=== PATIENT | female | born 1955 | race Caucasian/White ===

== ENCOUNTER 2020-08-17 15:13 | Emergency (ER) | payer MEDICARE, BC ==
[2020-08-17] MEDS ORDERED: HYDROcodone/Acetaminophen 5/325 mg Tablet ONE (15:41)
[2020-08-17] MEDS ORDERED: KETAMINE 100 MG/ML (5ML VIAL) ONE (16:43)
[2020-08-17] MEDS ORDERED: Midazolam HCl 2 mg/2 ml Vial ONE (17:46)
[2020-08-17] MEDS ORDERED: Ondansetron PF 4 MG/2 ML Vial ONE (17:46)
[2020-08-17] MEDS ORDERED: Sodium Chloride 0.9% 100 ML ONE (18:27)
[2020-08-17] MEDS ORDERED: Promethazine HCl 25 MG/ML VIAL ONE (18:27)
== END 2020-08-17 22:20 | disposition short-term general hospital (02) ==
LOC: NAV ERS 15:13
DX: S82.852A Displaced trimalleolar fracture of left lower leg, initial encounter for closed fracture (principal); S93.05XA Dislocation of left ankle joint, initial encounter; H40.9 Unspecified glaucoma; Z79.899 Other long term (current) drug therapy; W00.0XXA Fall on same level due to ice and snow, initial encounter
CPT/HCPCS: 27818; 96365; 96375; 99152; 99153; J2250; J2405; J2550

== ENCOUNTER 2020-08-24 18:46 | Inpatient (IN) | payer MEDICARE, BC ==
[2020-08-25 05:20] LABS: #Basophils 0.1 thou/uL (0.0-0.2); #Eosinphils 0.4 thou/uL (0.0-0.7); #Lymphocytes 2.2 thou/uL (1.20-3.40); #Monocytes 0.5 thou/uL (0.11-0.59); #Neutrophils 3.4 thou/uL (1.40-6.50); %Basophils 0.8 % (0.0-1.0); %Eosinophils 6.2 % (0.0-10.0); %Lymphocytes 33.2 % (21.0-51.0); %Monocytes 7.5 % (0.0-10.0); %Neutrophils 52.4 % (42.0-75.0); Hemoglobin 11.9 g/dL (12.0-16.0); Mean Corpuscular HGB CONC 32.3 g/dL (32.0-36.0); Mean Corpuscular Hemoglobin 28.8 pg (27.0-31.0); Mean Corpuscular Volume 89.3 fL (78.0-98.0); Mean Platelet Volume 5.5 fL (7.4-10.4); Platelet Count 252 thou/uL (130-400); RBC Distribution Width 12.6 % (11.5-14.5); Red Blood Cell (RBC) Count 4.13 mill/uL (4.20-5.40); White Blood Cell (WBC) Count 6.5 thou/uL (4.8-10.8)
[2020-08-25 05:31] LABS: Anion Gap 14 mmol/L (10-20); BUN (Urea Nitrogen) 15 mg/dL (9.8-20.1); Calc. Creatinine Clearance 135 mL/min (70-130); Calcium 9.2 mg/dL (7.8-10.44); Carbon Dioxide 26 mmol/L (23-31); Chloride 104 mmol/L (98-107); Glucose 92 mg/dL (80-115); Potassium 3.9 mmol/L (3.5-5.1); Sodium 140 mmol/L (136-145)
[2020-08-25] MEDS: Acetaminophen 500 MG TAB PO SCH ×5 (06:25→23:47)
[2020-08-25] MEDS: Brimonidine Tartrate 0.2% Ophth Soln 5 ml Bottle EA EYE SCH ×2 (08:03→20:05)
[2020-08-25] MEDS: Multivitamin W/ Minerals 1 TAB PO SCH (08:04)
[2020-08-25] MEDS: DorzolamidE/Timolol 2%/0.5% Ophth Soln 10 ml Bottle EA EYE SCH ×2 (08:04→20:04)
[2020-08-25] MEDS: Loratadine 10 MG TAB PO SCH (08:04)
[2020-08-25] MEDS: traMADol HCl 50 MG TAB PO PRN (08:04)
[2020-08-25] MEDS: Stress 600 With Zinc 1 TAB PO SCH (08:04)
[2020-08-25] MEDS ORDERED: FLU VACC QS2020-21(65YR UP)/PF 240 MCG/0.7 ML SYRINGE IM ONE (09:00)
[2020-08-25] MEDS: Latanoprost 0.005% Ophth Soln 2.5 ml Bottle EA EYE SCH (20:04)
[2020-08-26] MEDS: Acetaminophen 500 MG TAB PO SCH ×4 (05:18→23:55)
[2020-08-26] MEDS: DorzolamidE/Timolol 2%/0.5% Ophth Soln 10 ml Bottle EA EYE SCH ×2 (09:18→20:48)
[2020-08-26] MEDS: Multivitamin W/ Minerals 1 TAB PO SCH (09:19)
[2020-08-26] MEDS: Loratadine 10 MG TAB PO SCH (09:19)
[2020-08-26] MEDS: Brimonidine Tartrate 0.2% Ophth Soln 5 ml Bottle EA EYE SCH ×2 (09:19→20:48)
[2020-08-26] MEDS: Stress 600 With Zinc 1 TAB PO SCH (09:19)
[2020-08-26] MEDS: traMADol HCl 50 MG TAB PO PRN (20:46)
[2020-08-26] MEDS: Latanoprost 0.005% Ophth Soln 2.5 ml Bottle EA EYE SCH (20:49)
[2020-08-27] MEDS: Acetaminophen 500 MG TAB PO SCH ×4 (05:11→23:38)
[2020-08-27] MEDS: Loratadine 10 MG TAB PO SCH (09:00)
[2020-08-27] MEDS: Stress 600 With Zinc 1 TAB PO SCH (09:00)
[2020-08-27] MEDS: DorzolamidE/Timolol 2%/0.5% Ophth Soln 10 ml Bottle EA EYE SCH ×2 (09:02→21:00)
[2020-08-27] MEDS: Multivitamin W/ Minerals 1 TAB PO SCH (09:02)
[2020-08-27] MEDS: Brimonidine Tartrate 0.2% Ophth Soln 5 ml Bottle EA EYE SCH ×2 (09:02→21:00)
[2020-08-27] MEDS: Latanoprost 0.005% Ophth Soln 2.5 ml Bottle EA EYE SCH (21:00)
[2020-08-28] MEDS: Acetaminophen 500 MG TAB PO SCH ×3 (05:57→18:07)
[2020-08-28] MEDS: DorzolamidE/Timolol 2%/0.5% Ophth Soln 10 ml Bottle EA EYE SCH ×2 (09:42→20:50)
[2020-08-28] MEDS: Multivitamin W/ Minerals 1 TAB PO SCH (09:42)
[2020-08-28] MEDS: Stress 600 With Zinc 1 TAB PO SCH (09:42)
[2020-08-28] MEDS: Loratadine 10 MG TAB PO SCH (09:42)
[2020-08-28] MEDS: Brimonidine Tartrate 0.2% Ophth Soln 5 ml Bottle EA EYE SCH ×2 (09:42→20:51)
[2020-08-28] MEDS: Latanoprost 0.005% Ophth Soln 2.5 ml Bottle EA EYE SCH (20:51)
[2020-08-29] MEDS: Acetaminophen 500 MG TAB PO SCH ×4 (00:20→18:25)
[2020-08-29] MEDS: Loratadine 10 MG TAB PO SCH (09:00)
[2020-08-29] MEDS: Multivitamin W/ Minerals 1 TAB PO SCH (09:00)
[2020-08-29] MEDS: Stress 600 With Zinc 1 TAB PO SCH (09:00)
[2020-08-29] MEDS: DorzolamidE/Timolol 2%/0.5% Ophth Soln 10 ml Bottle EA EYE SCH ×2 (09:01→21:13)
[2020-08-29] MEDS: Brimonidine Tartrate 0.2% Ophth Soln 5 ml Bottle EA EYE SCH ×2 (09:01→21:12)
[2020-08-29] MEDS: Latanoprost 0.005% Ophth Soln 2.5 ml Bottle EA EYE SCH (21:11)
[2020-08-30] MEDS: Acetaminophen 500 MG TAB PO SCH ×5 (01:11→23:48)
[2020-08-30] MEDS: Multivitamin W/ Minerals 1 TAB PO SCH (08:52)
[2020-08-30] MEDS: DorzolamidE/Timolol 2%/0.5% Ophth Soln 10 ml Bottle EA EYE SCH ×2 (08:52→20:36)
[2020-08-30] MEDS: Stress 600 With Zinc 1 TAB PO SCH (08:52)
[2020-08-30] MEDS: Loratadine 10 MG TAB PO SCH (08:52)
[2020-08-30] MEDS: Brimonidine Tartrate 0.2% Ophth Soln 5 ml Bottle EA EYE SCH ×2 (08:52→20:37)
[2020-08-30] MEDS: Latanoprost 0.005% Ophth Soln 2.5 ml Bottle EA EYE SCH (20:37)
[2020-08-31] MEDS: Acetaminophen 500 MG TAB PO SCH ×3 (06:04→17:33)
[2020-08-31] MEDS: Brimonidine Tartrate 0.2% Ophth Soln 5 ml Bottle EA EYE SCH ×2 (09:52→20:34)
[2020-08-31] MEDS: DorzolamidE/Timolol 2%/0.5% Ophth Soln 10 ml Bottle EA EYE SCH ×2 (09:52→20:34)
[2020-08-31] MEDS: Multivitamin W/ Minerals 1 TAB PO SCH (09:53)
[2020-08-31] MEDS: Loratadine 10 MG TAB PO SCH (09:53)
[2020-08-31] MEDS: Stress 600 With Zinc 1 TAB PO SCH (09:53)
[2020-08-31] MEDS: Latanoprost 0.005% Ophth Soln 2.5 ml Bottle EA EYE SCH (20:34)
[2020-09-01] MEDS: Acetaminophen 500 MG TAB PO SCH ×5 (00:39→23:56)
[2020-09-01] MEDS: Stress 600 With Zinc 1 TAB PO SCH (09:21)
[2020-09-01] MEDS: Multivitamin W/ Minerals 1 TAB PO SCH (09:21)
[2020-09-01] MEDS: Loratadine 10 MG TAB PO SCH (09:21)
[2020-09-01] MEDS: DorzolamidE/Timolol 2%/0.5% Ophth Soln 10 ml Bottle EA EYE SCH ×2 (09:24→20:37)
[2020-09-01] MEDS: Brimonidine Tartrate 0.2% Ophth Soln 5 ml Bottle EA EYE SCH ×2 (09:24→20:36)
[2020-09-01] MEDS: Latanoprost 0.005% Ophth Soln 2.5 ml Bottle EA EYE SCH (20:36)
[2020-09-02] MEDS: Acetaminophen 500 MG TAB PO SCH ×3 (05:07→18:26)
[2020-09-02] MEDS: Brimonidine Tartrate 0.2% Ophth Soln 5 ml Bottle EA EYE SCH ×2 (09:07→20:48)
[2020-09-02] MEDS: Multivitamin W/ Minerals 1 TAB PO SCH (09:08)
[2020-09-02] MEDS: Loratadine 10 MG TAB PO SCH (09:08)
[2020-09-02] MEDS: DorzolamidE/Timolol 2%/0.5% Ophth Soln 10 ml Bottle EA EYE SCH ×2 (09:08→20:48)
[2020-09-02] MEDS: Stress 600 With Zinc 1 TAB PO SCH (09:08)
[2020-09-02] MEDS: Latanoprost 0.005% Ophth Soln 2.5 ml Bottle EA EYE SCH (20:47)
[2020-09-03] MEDS: Acetaminophen 500 MG TAB PO SCH ×5 (00:53→23:27)
[2020-09-03] MEDS: Brimonidine Tartrate 0.2% Ophth Soln 5 ml Bottle EA EYE SCH ×2 (08:40→20:47)
[2020-09-03] MEDS: Stress 600 With Zinc 1 TAB PO SCH (08:41)
[2020-09-03] MEDS: Loratadine 10 MG TAB PO SCH (08:41)
[2020-09-03] MEDS: Multivitamin W/ Minerals 1 TAB PO SCH (08:41)
[2020-09-03] MEDS: DorzolamidE/Timolol 2%/0.5% Ophth Soln 10 ml Bottle EA EYE SCH ×2 (08:41→20:47)
[2020-09-03] MEDS: Latanoprost 0.005% Ophth Soln 2.5 ml Bottle EA EYE SCH (20:46)
[2020-09-04] MEDS: Acetaminophen 500 MG TAB PO SCH ×4 (05:26→23:51)
[2020-09-04] MEDS: Brimonidine Tartrate 0.2% Ophth Soln 5 ml Bottle EA EYE SCH ×2 (08:30→20:20)
[2020-09-04] MEDS: DorzolamidE/Timolol 2%/0.5% Ophth Soln 10 ml Bottle EA EYE SCH ×2 (08:30→20:19)
[2020-09-04] MEDS: Multivitamin W/ Minerals 1 TAB PO SCH (08:30)
[2020-09-04] MEDS: Stress 600 With Zinc 1 TAB PO SCH (08:30)
[2020-09-04] MEDS: Loratadine 10 MG TAB PO SCH (08:30)
[2020-09-04] MEDS: Latanoprost 0.005% Ophth Soln 2.5 ml Bottle EA EYE SCH (20:19)
[2020-09-05] MEDS: Acetaminophen 500 MG TAB PO SCH ×4 (05:04→23:31)
[2020-09-05] MEDS: Loratadine 10 MG TAB PO SCH (09:56)
[2020-09-05] MEDS: Brimonidine Tartrate 0.2% Ophth Soln 5 ml Bottle EA EYE SCH ×2 (09:56→20:12)
[2020-09-05] MEDS: Multivitamin W/ Minerals 1 TAB PO SCH (09:56)
[2020-09-05] MEDS: DorzolamidE/Timolol 2%/0.5% Ophth Soln 10 ml Bottle EA EYE SCH ×2 (09:56→20:12)
[2020-09-05] MEDS: Stress 600 With Zinc 1 TAB PO SCH (09:57)
[2020-09-05] MEDS: Latanoprost 0.005% Ophth Soln 2.5 ml Bottle EA EYE SCH (20:13)
[2020-09-05 20:44] VITALS: BMI 46.0
[2020-09-06] MEDS: Acetaminophen 500 MG TAB PO SCH ×4 (05:57→23:52)
[2020-09-06] MEDS: Loratadine 10 MG TAB PO SCH (08:39)
[2020-09-06] MEDS: Stress 600 With Zinc 1 TAB PO SCH (08:39)
[2020-09-06] MEDS: Multivitamin W/ Minerals 1 TAB PO SCH (08:39)
[2020-09-06] MEDS: Brimonidine Tartrate 0.2% Ophth Soln 5 ml Bottle EA EYE SCH ×2 (08:40→20:20)
[2020-09-06] MEDS: DorzolamidE/Timolol 2%/0.5% Ophth Soln 10 ml Bottle EA EYE SCH ×2 (08:41→20:20)
[2020-09-06] MEDS: Latanoprost 0.005% Ophth Soln 2.5 ml Bottle EA EYE SCH (20:20)
[2020-09-07] MEDS: Acetaminophen 500 MG TAB PO SCH ×4 (04:59→23:49)
[2020-09-07] MEDS: Brimonidine Tartrate 0.2% Ophth Soln 5 ml Bottle EA EYE SCH ×2 (08:04→20:45)
[2020-09-07] MEDS: Loratadine 10 MG TAB PO SCH (08:04)
[2020-09-07] MEDS: Multivitamin W/ Minerals 1 TAB PO SCH (08:04)
[2020-09-07] MEDS: DorzolamidE/Timolol 2%/0.5% Ophth Soln 10 ml Bottle EA EYE SCH ×2 (08:04→20:44)
[2020-09-07] MEDS: Stress 600 With Zinc 1 TAB PO SCH (08:05)
[2020-09-07] MEDS: Latanoprost 0.005% Ophth Soln 2.5 ml Bottle EA EYE SCH (20:45)
[2020-09-08] MEDS: Acetaminophen 500 MG TAB PO SCH ×2 (06:12→12:20)
[2020-09-08 07:56] VITALS: BP 111/60; TEMP 98.2
[2020-09-08] MEDS: Brimonidine Tartrate 0.2% Ophth Soln 5 ml Bottle EA EYE SCH (08:37)
[2020-09-08] MEDS: DorzolamidE/Timolol 2%/0.5% Ophth Soln 10 ml Bottle EA EYE SCH (08:37)
[2020-09-08] MEDS: Loratadine 10 MG TAB PO SCH (08:38)
[2020-09-08] MEDS: Multivitamin W/ Minerals 1 TAB PO SCH (08:38)
[2020-09-08] MEDS: Stress 600 With Zinc 1 TAB PO SCH (08:38)
== END 2020-09-08 15:30 | disposition home health service (06) | DRG 560 ==
LOC: NAV ACUTE 18:46
PROVIDERS: ADMIT Internal Medicine; ATTEND Internal Medicine
DX: S82.852D Displaced trimalleolar fracture of left lower leg, subsequent encounter for closed fracture with routine healing (principal); D62 Acute posthemorrhagic anemia; Z68.42 Body mass index [BMI] 45.0-49.9, adult; W00.0XXD Fall on same level due to ice and snow, subsequent encounter; H40.9 Unspecified glaucoma; R53.81 Other malaise; Z90.710 Acquired absence of both cervix and uterus; Z79.899 Other long term (current) drug therapy; E66.01 Morbid (severe) obesity due to excess calories
CPT/HCPCS: 80048; 85025